=== PATIENT | male | born 1975 | race Hispanic/Latino ===

== ENCOUNTER 2021-03-27 16:01 | Emergency (ER) | payer SELFPAY ==
[~2021-03-27] VITALS: Ht 162.6 cm; Wt 74.8 kg
[2021-03-27 16:03] VITALS: BP 120/80
== END 2021-03-27 16:29 | disposition home or self-care (01) ==
LOC: EDH 16:01
DX: H57.89 Other specified disorders of eye and adnexa (principal); Z53.21 Procedure and treatment not carried out due to patient leaving prior to being seen by health care provider

== ENCOUNTER 2021-10-01 16:06 | Emergency (ER) | payer OTHER ==
[~2021-10-01] VITALS: Ht 162.6 cm; Wt 72.6 kg
[2021-10-01] MEDS ORDERED: TETANUS/DIPHTHERIA TOXOID [ADULT] 0.5 ML VIAL IM ONE ×2 (17:00→17:03)
[2021-10-01] MEDS ORDERED: ACETAMINOPHEN 500 MG TABLET PO ONE (17:00)
[2021-10-01] MEDS ORDERED: CEPHALEXIN 500 MG CAPSULE PO ONE (17:00)
[2021-10-01] MEDS ORDERED: CEPHALEXIN 500 MG CAPSULE ONE (17:02)
[2021-10-01] MEDS ORDERED: ACETAMINOPHEN 500 MG TABLET ONE (17:03)
[2021-10-01] MEDS ORDERED: LIDOCAINE HCL MPF 1% 5ML VIAL ONE (17:28)
[2021-10-01 18:08] VITALS: BP 107/74
== END 2021-10-01 18:23 | disposition home or self-care (01) ==
LOC: EDH 16:06
DX: S81.812A Laceration without foreign body, left lower leg, initial encounter (principal); X58.XXXA Exposure to other specified factors, initial encounter; Y93.89 Activity, other specified; Y92.89 Other specified places as the place of occurrence of the external cause; Y99.8 Other external cause status
CPT/HCPCS: 12001; 73590; 90471; 90714; 99283; J3490